=== PATIENT | female | born 1985 | race African-American/Black ===

== ENCOUNTER 2018-02-18 22:22 | Emergency (ER) | payer MEDICAID ==
[~2018-02-18] VITALS: Ht 172.7 cm; Wt 93.4 kg
[2018-02-18 22:28] VITALS: BP 136/70
[2018-02-18] MEDS ORDERED: PROCHLORPERAZINE 10MG/2ML VIAL IV ONE (23:45)
[2018-02-18] MEDS ORDERED: SODIUM CHLORIDE 0.9% 1,000 ML IV ONE (23:45)
[2018-02-18] MEDS ORDERED: KETOROLAC 30MG/ML VIAL IV ONE (23:45)
[2018-02-18] MEDS ORDERED: DIPHENHYDRAMINE 50MG/ML VIAL IV ONE (23:45)
[2018-02-19 01:09] LABS: BASOPHILS % 0.7 % (0.0-2.0); EOSINOPHILS % 2.4 % (0.0-5.0); HEMATOCRIT. 38.4 % (36.0-48.0); HEMOGLOBIN. 12.7 g/dL (12.0-16.0); LYMPHOCYTES % 39.4 % (20.0-50.0); MEAN CORPUSCULAR HEMOGLOBIN 30.9 pg (28.0-32.0); MEAN CORPUSCULAR VOLUME 93.2 fL (81.0-99.0); MEAN PLATELET VOLUME 10.9 fl (7.4-10.4); MONOCYTES % 4.4 % (2.0-8.0); NEUTROPHILS % 53.1 % (40.0-76.0); PLATELET 172 x1000/uL (130-400); RED BLOOD CELL COUNT 4.12 mill/uL (4.2-5.4); RED CELL DISTRIBUTION WIDTH 12.7 % (11.6-14.6)
[2018-02-19 01:10] LABS: CHLORIDE 104 mEq/L (98-107)
[2018-02-19 01:11] LABS: INR 1.1
[2018-02-19 01:13] LABS: CLARITY URINE CLOUDY (CLEAR); COLOR URINE YELLOW (YELLOW); KETONES URINE NEGATIVE (NEGATIVE); LEUKOCYTE ESTERASE URINE 2+ (NEGATIVE); NITRITE URINE NEGATIVE (NEGATIVE); OCCULT BLOOD URINE NEGATIVE (NEGATIVE); PROTEIN URINE NEGATIVE (NEGATIVE); SPECIFIC GRAVITY URINE 1.022 (1.005-1.030)
[2018-02-19 01:31] LABS: *AMPHETAMINES SCREEN URINE NEGATIVE (NEGATIVE); *BARBITURATES SCREEN URINE NEGATIVE (NEGATIVE); *BENZODIAZEPINES SCREEN URINE NEGATIVE (NEGATIVE); *COCAINE SCREEN URINE NEGATIVE (NEGATIVE); METHADONE URINE SCREEN NEGATIVE (NEGATIVE); OPIATES URINE SCREEN NEGATIVE (NEGATIVE); PHENCYCLIDINE URINE SCREEN NEGATIVE (NEGATIVE)
[2018-02-19 01:32] LABS: CANNABINOID URINE SCREEN NEGATIVE (NEGATIVE)
== END 2018-02-19 02:29 | disposition home or self-care (01) ==
LOC: ER 23:47
DX: R51 Headache (principal); N39.0 Urinary tract infection, site not specified; R11.2 Nausea with vomiting, unspecified
CPT/HCPCS: 36415; 80048; 80305; 81003; 81025; 85025; 85610; 96361; 96374; 96375; 99285; J0780; J1200; J1885; J7030; Z7610